=== PATIENT | female | born 1945 | race Caucasian/White ===

== ENCOUNTER 2017-02-18 17:21 | Inpatient (IN) | payer MEDICARE, OTHER ==
[~2017-02-18] VITALS: Ht 160 cm; Wt 86.8 kg
[2017-02-18] MEDS ORDERED: LISI-662 PO (17:43)
[2017-02-18] MEDS ORDERED: EZET10 PO (17:43)
[2017-02-18] MEDS ORDERED: GABA-529 PO (17:43)
[2017-02-18] MEDS ORDERED: CITA20TA9 PO (17:43)
[2017-02-18] MEDS ORDERED: PERCT10 PO (17:43)
[2017-02-18] MEDS ORDERED: ATOR40TA28 PO (17:43)
[2017-02-18] MEDS ORDERED: SODIUM CHLORIDE 0.9% 1,000 ML IV ONE ×3 (17:45→22:15)
[2017-02-18 18:06] LABS: BASOPHILS % (AUTO) 0.3 % (0.0-2.0); EOSINOPHILS % (AUTO) 1.3 % (1.0-6.0); HEMOGLOBIN 14.2 g/dL (12.0-16.0); LYMPHOCYTES # (AUTO) 0.9 K/uL (1.0-4.8); LYMPHOCYTES % (AUTO) 9.1 % (22.0-44.0); MEAN CORPUSCULAR HEMOGLOBIN 31.7 pg (26.0-34.0); MEAN CORPUSCULAR HGB CONC 33.8 G/dL (31.0-37.0); MEAN CORPUSCULAR VOLUME 94 fL (80-100); MONOCYTES # (AUTO) 0.6 K/uL (0.1-1.0); MONOCYTES % (AUTO) 5.5 % (2.0-9.0); NEUTROPHILS # (AUTO) 8.4 K/uL (1.8-7.7); NEUTROPHILS % (AUTO) 83.8 % (40.0-70.0); PLATELET COUNT (AUTO) 225 K/uL (150-450); RED BLOOD CELL COUNT(AUTO) 4.48 MIL/uL (4.00-5.20); RED CELL DISTRIBUTION WIDTH 14.6 % (11.5-14.5)
[2017-02-18 18:16] LABS: CALCIUM, TOTAL 9.3 mg/dL (8.8-10.5); CREATININE 1.46 mg/dL (0.60-1.30); POTASSIUM 4.4 mmol/L (3.5-5.1)
[2017-02-18 18:22] LABS: ALBUMIN 3.8 g/dL (3.4-5.0); BILIRUBIN,TOTAL 1.4 mg/dL (0.1-1.0); TOTAL PROTEIN, SERUM 7.1 g/dL (6.4-8.2)
[2017-02-18 18:25] LABS: LACTIC ACID 1.5 mmol/L (0.4-2.0)
[2017-02-18] MEDS ORDERED: BARIUM SULFATE 0.1% SUSPENSION 450 ML BOTTLE PO ONE (18:30)
[2017-02-18 18:47] LABS: GLUCOSE,POINT OF CARE 94 MG/DL (70-110)
[2017-02-18] MEDS ORDERED: IOVERSOL 350 MG/ML 100 ML VIAL ONE (19:08)
[2017-02-18] MEDS ORDERED: ONDANSETRON HCL 4 MG/2 ML VIAL IVP ONE ×2 (19:15→22:15)
[2017-02-18] MEDS ORDERED: ACETAMINOPHEN 325 MG TABLET PO PRN ×2 (21:00→22:15)
[2017-02-18] MEDS ORDERED: 0.9% SODIUM CHLORIDE 10 ML SYRINGE IVP PRN (21:00)
[2017-02-18] MEDS ORDERED: ONDANSETRON HCL 4 MG/2 ML VIAL IVP PRN ×2 (21:00→22:15)
[2017-02-18] MEDS ORDERED: PIPERACILLIN/TAZO 3.375 GM/D5W 50 ML IV ONE (22:15)
[2017-02-18] MEDS ORDERED: BISACODYL 10 MG RECTAL RECTAL SUPPOSITORY PR PRN (22:15)
[2017-02-18] MEDS ORDERED: ALBUTEROL SULFATE 2.5 MG/0.5 ML NEB SOLUTION NEB PRN (22:15)
[2017-02-18] MEDS ORDERED: HYDROmorphone 2 MG/ML SYRINGE IVP ONE (22:45)
[2017-02-18] MEDS: HEPARIN SODIUM,PORCINE 5,000 UNITS/ML VIAL SQ SCH (23:12)
[2017-02-19 04:14] LABS: APPEARANCE,URINE CLEAR (CLEAR); GLUCOSE, URINE (UA) NEGATIVE (NEGATIVE); KETONES,URINE NEGATIVE (NEGATIVE); LEUKOCYTE ESTERASE ,URINE NEGATIVE (NEGATIVE); OCCULT BLOOD,URINE NEGATIVE (NEGATIVE); PH,URINE 5.5 (5.0-8.0); PROTEIN,URINE NEGATIVE (NEGATIVE)
[2017-02-19 04:15] LABS: ADD UA MICROSCOPIC NO
[2017-02-19] MEDS: HEPARIN SODIUM,PORCINE 5,000 UNITS/ML VIAL SQ SCH (08:00)
[2017-02-19 08:35] LABS: BASOPHILS % (AUTO) 0.3 % (0.0-2.0); EOSINOPHILS % (AUTO) 0 % (1.0-6.0); HEMATOCRIT 34.6 % (36-46); HEMOGLOBIN 11.8 g/dL (12.0-16.0); LYMPHOCYTES # (AUTO) 0.8 K/uL (1.0-4.8); LYMPHOCYTES % (AUTO) 8.9 % (22.0-44.0); MEAN CORPUSCULAR HEMOGLOBIN 31.8 pg (26.0-34.0); MEAN CORPUSCULAR HGB CONC 34.2 G/dL (31.0-37.0); MEAN CORPUSCULAR VOLUME 93 fL (80-100); MONOCYTES # (AUTO) 0.7 K/uL (0.1-1.0); MONOCYTES % (AUTO) 8.3 % (2.0-9.0); NEUTROPHILS # (AUTO) 7.3 K/uL (1.8-7.7); NEUTROPHILS % (AUTO) 82.5 % (40.0-70.0); PLATELET COUNT (AUTO) 205 K/uL (150-450); RED BLOOD CELL COUNT(AUTO) 3.71 MIL/uL (4.00-5.20); WHITE BLOOD COUNT (AUTO) 8.8 K/uL (4.5-11.0)
[2017-02-19] MEDS ORDERED: PANTOPRAZOLE SODIUM 40 MG DR TABLET PO SCH (09:00)
[2017-02-19] MEDS: DOCUSATE SODIUM 100 MG CAPSULE PO SCH ×2 (09:00→20:14)
[2017-02-19 09:05] VITALS: BP 151/90
[2017-02-19 09:05] LABS: ALBUMIN 3.1 g/dL (3.4-5.0); BILIRUBIN,TOTAL 1.5 mg/dL (0.1-1.0); CREATININE 1.17 mg/dL (0.60-1.30); POTASSIUM 3.8 mmol/L (3.5-5.1)
[2017-02-19] MEDS: OxyCODONE HCL/ACETAMINOPHEN 5-325 MG TABLET PO PRN ×3 (09:25→20:14)
[2017-02-19 11:22] VITALS: BP 123/59
[2017-02-19 15:35] VITALS: BP 143/74
[2017-02-19] MEDS: PIPERACILLIN/TAZO 3.375 GM/D5W 50 ML IV SCH ×2 (17:15→21:56)
[2017-02-19] MEDS: PANTOPRAZOLE SODIUM 40 MG/VIAL IVP SCH (20:14)
[2017-02-19 20:24] VITALS: BP 140/57
[2017-02-19] MEDS ORDERED: ZOLPIDEM TARTRATE 5 MG TABLET PO PRN (21:15)
[2017-02-19] MEDS: MetroNIDAZOLE 500 MG TABLET PO SCH (22:20)
[2017-02-20 00:13] VITALS: BP 148/61
[2017-02-20] MEDS: PIPERACILLIN/TAZO 3.375 GM/D5W 50 ML IV SCH ×2 (04:07→10:03)
[2017-02-20 04:31] VITALS: BP 149/67
[2017-02-20 06:23] LABS: BASOPHILS # (AUTO) 0.02 K/uL (0.00-0.20); BASOPHILS % (AUTO) 0.3 % (0.0-2.0); EOSINOPHILS # (AUTO) 0.05 K/uL (0.00-0.70); EOSINOPHILS % (AUTO) 0.78 % (1.0-6.0); HEMATOCRIT 30.8 % (36-46); HEMOGLOBIN 10.7 g/dL (12.0-16.0); LYMPHOCYTES # (AUTO) 0.9 K/uL (1.0-4.8); LYMPHOCYTES % (AUTO) 12.8 % (22.0-44.0); MEAN CORPUSCULAR HEMOGLOBIN 32.1 pg (26.0-34.0); MEAN CORPUSCULAR HGB CONC 34.8 G/dL (31.0-37.0); MEAN CORPUSCULAR VOLUME 92 fL (80-100); MONOCYTES # (AUTO) 0.6 K/uL (0.1-1.0); MONOCYTES % (AUTO) 9.6 % (2.0-9.0); NEUTROPHILS # (AUTO) 5.1 K/uL (1.8-7.7); NEUTROPHILS % (AUTO) 76.5 % (40.0-70.0); PLATELET COUNT (AUTO) 167 K/uL (150-450); RED BLOOD CELL COUNT(AUTO) 3.34 MIL/uL (4.00-5.20); RED CELL DISTRIBUTION WIDTH 14.5 % (11.5-14.5); WHITE BLOOD COUNT (AUTO) 6.6 K/uL (4.5-11.0)
[2017-02-20 06:55] LABS: ALBUMIN 2.8 g/dL (3.4-5.0); BILIRUBIN,TOTAL 2.1 mg/dL (0.1-1.0); CALCIUM, TOTAL 8.3 mg/dL (8.8-10.5); CREATININE 0.96 mg/dL (0.60-1.30); POTASSIUM 3.4 mmol/L (3.5-5.1); TOTAL PROTEIN, SERUM 5.8 g/dL (6.4-8.2)
[2017-02-20] MEDS: OxyCODONE HCL/ACETAMINOPHEN 5-325 MG TABLET PO PRN (07:44)
[2017-02-20 07:47] VITALS: BP 155/83
[2017-02-20] MEDS ORDERED: POTASSIUM CHLORIDE 20 MEQ ER TABLET PO PRN (08:15)
[2017-02-20] MEDS ORDERED: POTASSIUM CHL 10 MEQ/WATER 50 ML IV PRN (08:15)
[2017-02-20] MEDS: PANTOPRAZOLE SODIUM 40 MG/VIAL IVP SCH (08:44)
[2017-02-20] MEDS: MetroNIDAZOLE 500 MG TABLET PO SCH (08:44)
[2017-02-20] MEDS: DOCUSATE SODIUM 100 MG CAPSULE PO SCH (08:44)
[2017-02-20 11:14] VITALS: BP 144/71
[2017-02-20] MEDS ORDERED: METR500T PO (11:15)
[2017-02-20] MEDS ORDERED: CIPR500S5 PO (11:16)
== END 2017-02-20 12:13 | disposition home or self-care (01) | DRG 394 ==
LOC: EMS 17:23 → 5S 02-19 06:27
PROVIDERS: ADMIT Internal Medicine; ATTEND Internal Medicine
DX: K55.9 Vascular disorder of intestine, unspecified (principal); K57.32 Diverticulitis of large intestine without perforation or abscess without bleeding; N17.9 Acute kidney failure, unspecified; E44.0 Moderate protein-calorie malnutrition; R18.8 Other ascites; K82.1 Hydrops of gallbladder; K80.40 Calculus of bile duct with cholecystitis, unspecified, without obstruction; M48.02 Spinal stenosis, cervical region; K92.1 Melena; R65.10 Systemic inflammatory response syndrome (SIRS) of non-infectious origin without acute organ dysfunction; R55 Syncope and collapse; E78.5 Hyperlipidemia, unspecified; I10 Essential (primary) hypertension; I70.0 Atherosclerosis of aorta; K44.9 Diaphragmatic hernia without obstruction or gangrene; M43.12 Spondylolisthesis, cervical region; M46.90 Unspecified inflammatory spondylopathy, site unspecified; N28.9 Disorder of kidney and ureter, unspecified; B96.89 Other specified bacterial agents as the cause of diseases classified elsewhere
CPT/HCPCS: 70450; 72125; 74177; 76700; 82271; 82948; 82962; 83605; 87040; 87045; 87324; 87449; 93005; 96365; 96375; 99291; C9113; J1170; J1644; J2405; J2543; J7030